=== PATIENT | female | born 1950 | race Caucasian/White ===

== ENCOUNTER 2017-06-06 09:00 | Outpatient (CLI) | payer OTHER | END 2017-06-06 18:21 | disposition home or self-care (01) | LOC: SRD 09:00 | PROVIDERS: ATTEND Internal Medicine Gastroenterology | DX: K57.30 Diverticulosis of large intestine without perforation or abscess without bleeding (principal) | CPT/HCPCS: 74270-TC ==

== ENCOUNTER 2023-01-29 07:30 | Inpatient (IN) | payer OTHER ==
[~2023-01-29] VITALS: Ht 157.5 cm; Wt 81.6 kg
[~2023-01-29 07:30] MED LIST: ALBU8.5H8 INH; FLUT1AER INH; LEVO125T PO; LORA10TA7 PO; MONT-40 PO; PRO40 PO; ROSU5TAB PO; UMEC62.5 IH
[2023-02-10] MEDS ORDERED: fentaNYL CITRATE/PF 100 MCG/2 ML AMP ONE (07:35)
[2023-02-10] MEDS ORDERED: WATER FOR IRRIGATION,STERILE 1,000 ML IRRIG.SOLN IR ONE (07:35)
[2023-02-10] MEDS ORDERED: BUPIVACAINE /EPINEPHRINE/PF 0.25% 30 ML VIAL ONE (07:35)
[2023-02-10] MEDS ORDERED: SUGAMMADEX SODIUM 200 MG/2 ML VIAL IV ONE (07:35)
[2023-02-10] MEDS ORDERED: NS IRRIG SOLN 1000 ML IR ONE (07:35)
[2023-02-10] MEDS ORDERED: ONDANSETRON HCL 4 MG/2 ML VIAL ONE (07:35)
[2023-02-10] MEDS ORDERED: PROPOFOL 200MG/ 20ML VIAL (DIPRIVAN) IV ONE (07:35)
[2023-02-10] MEDS ORDERED: LR 1,000 ML IV.SOLN IV ONE (07:35)
[2023-02-10] MEDS ORDERED: DESFLURANE 15 MIN GAS INH ONE (07:35)
[2023-02-10] MEDS ORDERED: MIDAZOLAM HCL 5 MG/ML VIAL (VERSED) IV ONE (07:35)
[2023-02-10] MEDS ORDERED: DEXAMETHASONE SOD PHOSPHATE 4 MG/ML VIAL ONE (07:35)
[2023-02-10] MEDS ORDERED: KETOROLAC TROMETHAMINE 30 MG VIAL ONE (07:35)
[2023-02-10] MEDS ORDERED: ROCURONIUM BROMIDE 10 MG/ML (ZEMURON) ONE (07:35)
[2023-02-10] MEDS ORDERED: BUPIVACAINE /EPINEPHRINE/PF 0.5% 30 ML VIAL INJ ONE (07:35)
[2023-02-10] MEDS ORDERED: NS 1000 ML IV.SOLN IV ONE (07:35)
[2023-02-10] MEDS ORDERED: LIDOCAINE HCL/PF 1% 10 ML AMPUL INJ ONE (07:35)
[2023-02-10] MEDS ORDERED: ceFAZolin SODIUM 1 GM VIAL ONE (07:35)
[2023-02-10] MEDS ORDERED: MIDAZOLAM HCL 2 MG/2 ML VIAL (VERSED) IVP PRN (08:45)
[2023-02-10] MEDS ORDERED: MEPERIDINE HCL/PF 25 MG/ML DISP.SYRIN IVP PRN (08:45)
[2023-02-10] MEDS ORDERED: HYDROmorphone 1 MG/ML INJ. CARTRIDGE IVP PRN ×5 (08:45→11:00)
[2023-02-10] MEDS ORDERED: LR 1,000 ML IV SCH (08:45)
[2023-02-10] MEDS ORDERED: LABETALOL 100 MG/ 20ML VIAL IVP PRN (08:45)
[2023-02-10] MEDS ORDERED: hydrALAZINE HCL 20 MG/ML VIAL IVP PRN (08:45)
[2023-02-10] MEDS ORDERED: METOCLOPRAMIDE HCL 10 MG/2 ML VIAL IVP PRN ×2 (08:45→11:30)
[2023-02-10] MEDS ORDERED: FLUT1BLS5 IH (08:49)
[2023-02-10] MEDS ORDERED: GABA-529 PO (08:51)
[2023-02-10] MEDS ORDERED: IBUP800T54 PO (08:52)
[2023-02-10] MEDS ORDERED: TRAM50TA2 PO (08:52)
[2023-02-10] MEDS ORDERED: BENA1TAB19 PO (08:54)
[2023-02-10] MEDS ORDERED: PRO40 PO (08:55)
[2023-02-10] MEDS ORDERED: ANAS1TAB51 PO (08:58)
[2023-02-10] MEDS ORDERED: DIPH25CA83 PO (08:59)
[2023-02-10] MEDS ORDERED: ACET-73 PO (08:59)
[2023-02-10] MEDS ORDERED: ACETAMINOPHEN I.V. 1000 MG 100 ML IV ONE (09:03)
[2023-02-10] MEDS ORDERED: oxyCODONE HCL 5 MG TABLET PO PRN ×2 (11:00)
[2023-02-10] MEDS ORDERED: LORATADINE 10 MG TABLET PO PRN (11:00)
[2023-02-10] MEDS ORDERED: DIPHENHYDRAMINE HCL 25 MG CAPSULE PO PRN (11:30)
[2023-02-10] MEDS ORDERED: NALOXONE HCL 0.4 MG/ML AMP (NARCAN) IVP PRN ×3 (11:30)
[2023-02-10] MEDS ORDERED: LACTULOSE 20 GM/30 ML UDC PO PRN (11:30)
[2023-02-10] MEDS ORDERED: BISACODYL 10 MG/SUPPOSITORY RC PRN (11:30)
[2023-02-10] MEDS ORDERED: ONDANSETRON HCL 4 MG/2 ML VIAL IVP PRN (11:45)
[2023-02-10] MEDS: HYDROmorphone 2 MG/ML VIAL ONE ×4 (11:50→12:05)
[2023-02-10] MEDS: KETOROLAC TROMETHAMINE 10 MG TABLET (TORADOL) PO SCH ×2 (14:00→21:50)
[2023-02-10 14:25] VITALS: BP_SYST 130
[2023-02-10 14:33] VITALS: BP_SYST 130
[2023-02-10] MEDS ORDERED: ASPIRIN 81 MG TAB.CHEW PO ONE (17:30)
[2023-02-10] MEDS: ceFAZolin SODIUM 2 GM in D5W 50 ML IV SCH (19:07)
[2023-02-10 20:00] VITALS: BP_SYST 144
[2023-02-10] MEDS: ACETAMINOPHEN 500 MG TABLET PO SCH (21:50)
[2023-02-10] MEDS: SENNOSIDES/DOCUSATE SODIUM 1 TAB TABLET(SENOKOT-S) PO SCH (21:51)
[2023-02-11 00:09] VITALS: BP_SYST 140
[2023-02-11] MEDS: ceFAZolin SODIUM 2 GM in D5W 50 ML IV SCH ×2 (01:04→09:42)
[2023-02-11] MEDS: KETOROLAC TROMETHAMINE 10 MG TABLET (TORADOL) PO SCH ×2 (05:59→09:46)
[2023-02-11 07:29] LABS: HEMATOCRIT 29.7 % (36-48); HEMOGLOBIN 10.3 g/dL (12.0-16.0)
[2023-02-11] MEDS ORDERED: ASPIRIN 81 MG TAB.CHEW PO SCH (08:00)
[2023-02-11] MEDS: ACETAMINOPHEN 500 MG TABLET PO SCH (09:00)
[2023-02-11] MEDS: SENNOSIDES/DOCUSATE SODIUM 1 TAB TABLET(SENOKOT-S) PO SCH (09:44)
[2023-02-11] MEDS ORDERED: ASA81 PO (09:58)
[2023-02-11] MEDS ORDERED: CELECOXIB 200 MG CAPSULE PO SCH (11:00)
[2023-02-11 11:30] VITALS: BP_SYST 123
[2023-02-11 12:03] VITALS: BP_SYST 123
== END 2023-02-11 12:30 | disposition home or self-care (01) | DRG 483 ==
LOC: SMU 02-10 05:00
PROVIDERS: ADMIT Orthopaedic Surgery Sports Medicine; ATTEND Orthopaedic Surgery Sports Medicine
PROC: 0RRJ0JZ Replacement of Right Shoulder Joint with Synthetic Substitute, Open Approach (ICD-10-PCS; principal; 2023-02-10 07:44)
DX: M19.011 Primary osteoarthritis, right shoulder (principal); Z20.822 Contact with and (suspected) exposure to COVID-19; J44.9 Chronic obstructive pulmonary disease, unspecified; I10 Essential (primary) hypertension; Z85.3 Personal history of malignant neoplasm of breast; Z79.899 Other long term (current) drug therapy
CPT/HCPCS: 36415; 76001; 83051; 85014; 87081; 88304; 96379; J0131; J0690; J1100; J1170; J1885; J2001; J2250; J2405; J2704; J3010; J3490; J7030; J7060; J7120